=== PATIENT | female | born 2000 | race Caucasian/White ===

== ENCOUNTER 2022-05-08 20:02 | Emergency (ER) | payer BC ==
[2022-05-08] MEDS ORDERED: Lidocaine 1% w/Epinephrine 1:200K 30 ML VIAL ONE (20:28)
[2022-05-08] MEDS ORDERED: Bacitracin 1 PK ONE (21:20)
== END 2022-05-08 21:38 | disposition home or self-care (01) ==
LOC: CSHERS 20:02
DX: S51.812A Laceration without foreign body of left forearm, initial encounter (principal); W26.9XXA Contact with unspecified sharp object(s), initial encounter
CPT/HCPCS: 12002

== ENCOUNTER 2022-05-15 14:04 | Emergency (ER) | payer BC | END 2022-05-15 14:44 | disposition home or self-care (01) | LOC: CSHERS 14:04 | DX: S51.812D Laceration without foreign body of left forearm, subsequent encounter (principal) ==

== ENCOUNTER 2022-05-31 17:11 | Emergency (ER) | payer BC | END 2022-05-31 18:23 | disposition home or self-care (01) | LOC: CSHERS 17:11 | DX: S51.812D Laceration without foreign body of left forearm, subsequent encounter (principal); W26.8XXD Contact with other sharp object(s), not elsewhere classified, subsequent encounter ==